=== PATIENT | male | born 1950 | race Caucasian/White ===

== ENCOUNTER 2017-06-17 13:23 | Emergency (ER) | payer OTHER, MEDICARE ==
[~2017-06-17] VITALS: Ht 177.8 cm; Wt 77.1 kg
[2017-06-17] MEDS ORDERED: ATORVASTATIN CA20 MG PO (13:33)
[2017-06-17] MEDS ORDERED: LEVOTHYROXINE125 MCG PO (13:33)
[2017-06-17] MEDS ORDERED: KEFLEX500 MG PO (15:47)
== END 2017-06-17 16:13 | disposition home or self-care (01) ==
LOC: ED 13:23
DX: S67.192A Crushing injury of right middle finger, initial encounter (principal); S61.312A Laceration without foreign body of right middle finger with damage to nail, initial encounter; S62.632A Displaced fracture of distal phalanx of right middle finger, initial encounter for closed fracture; E03.9 Hypothyroidism, unspecified; F17.200 Nicotine dependence, unspecified, uncomplicated; Z90.49 Acquired absence of other specified parts of digestive tract; Z79.899 Other long term (current) drug therapy; W20.8XXA Other cause of strike by thrown, projected or falling object, initial encounter
CPT/HCPCS: 11730; 73140; 90471; 90715; 99283

== ENCOUNTER 2018-08-05 05:35 | Day surgery (SDC) | payer MEDICARE, OTHER ==
[~2018-08-05] VITALS: Ht 177.8 cm; Wt 79.4 kg
[~2018-08-05 05:35] MED LIST: ATORVASTATIN CA20 MG PO; KEFLEX500 MG PO; LEVOTHYROXINE125 MCG PO
--- NOTE | 2018-08-05 09:10 | NUR ---
08/05/18 0910 Sheets,Roxana 0905 PT ARRIVED TO PACU ON 6L VIA MASK, RESP EVEN AND UNLABORED. PT REACTIVE TO TACTILE STIMULI, PT REORIENTED TO PACU.
--- NOTE | 2018-08-05 09:52 | NUR ---
PT ARRIVES TO DS RM 10 FROM PACU AWAKE AND ALERT. PT ABLE TO TOLERATE PO WITH NO NAUSEA. PT DENIES ANY PAIN. RESP EVEN AND UNLABORED ON RA, SATS ABOVE 94%. DC CRITERIA EXPLAINED TO PT. CALL LIGHT WITHIN REACH.
[2018-08-05] MEDS ORDERED: NORCO 10-325 T1 EACH PO (10:10)
--- NOTE | 2018-08-05 10:18 | NUR ---
[id number]: PT PROVIDED ICE CREAM AND COFFEE PER REQUEST. ICED WATER REFILLED. PT CONT TO REST IN HIGH FOWLERS, WATCHING TV WITH EVEN AND UNLABORED RESP SATS ABOVE 94% ON RA. PT FAMILY NOTIFIED VIA PHONE OF PT PROGRESS.
--- NOTE | 2018-08-05 10:28 | NUR ---
PT DENIES ANY NAUSEA OR PAIN. PT FAMILY, MONET ARRIVES AND IS AT BEDSIDE. PT STATES THE URGE TO VOID. PT SCD'S REMOVED AND IV SALINE LOCKED. PT SITS AT SIDE OF BED THEN SLOWLY STANDS WITH NO DIZZINESS. PT AMBULATES TO BATHROOM WITH STEADY GAIT. PT ABLE TO VOID QS WITH NO PROBLEMS.
--- NOTE | 2018-08-09 08:57 | OR ---
[facility] [address], [place] [address] Signed DATE OF OPERATION: 08/05/2018 SURGEON: Rico Diallo MD PREOPERATIVE DIAGNOSIS: Reducible right inguinal hernia. POSTOPERATIVE DIAGNOSIS: Reducible right direct inguinal hernia. PROCEDURE: Right Codie onlay mesh inguinal herniorrhaphy. ESTIMATED BLOOD LOSS: None. INDICATIONS: Kenia is a 67-year-old gentleman who has worked hard his whole life. He said in the last 7 to 9 months, he has noticed pain and swelling in the right groin. He said he had a left inguinal hernia repair back in the . He said it was much larger. He owns his own business, currently stays very active. He had been to his primary care provider. He was then asked to see me with respect to the above. On exam, his left inguinal canal was scarred in and unremarkable. The right inguinal canal showed a small to moderate sized, but reducible inguinal hernia. He is also a little tender with palpation. The spermatic cord and testicles were fine. I gave Anamika pamphlet on hernias in the office. We reviewed that very carefully. We did review the difference between the primary suture repair and a mesh repair. I explained to Kenia that the recurrent hernia rate with mesh is 1% or less. We also reviewed the expected intraop and postop course. He does understand the risks including, but not limited to bleeding, infection, scarring, change in contour of the skin, damage to the nerves, ischemic orchitis, recurrent hernias, and chronic pain. He has expressed understanding and would like to proceed. PROCEDURE NOTE: I met with Kenia in our preop area. We both agreed it was the right groin and we marked that appropriately. We did note that Kenia had shaved his hair the night before. He said back in the , that is what they had asked him to do. After this, he was taken in the operating room and placed in the supine position under general endotracheal tube anesthesia. He was given preoperative antibiotics along with subcutaneous heparin and SCDs were utilized. He was then prepped and draped in the usual sterile fashion. We Electronically Signed By: RICO DIALLO MD 08/09/18 0857 PATIENT NAME: KENIA DAILEY OPERATIVE REPORT DATE OF : 46 REPORT #: [id number] PHYSICIAN: RICO DIALLO MD PCP: ERICA FOSTER MD REPORT IS CONFIDENTIAL AND NOT TO BE RELEASED WITHOUT AUTHORIZATION [facility] [address], [place] [address] Signed measured out his right inguinal incision to match the incision in the left groin. It is a standard oblique incision. This was carried through the skin with the help of a #15 blade knife and down through the tissue bluntly and with the cautery. The external oblique fascia was opened along its length and developed medially and laterally. We had to sacrifice the ilioinguinal nerve as it was quite tiny and involved with the hernia itself. The cord structures were then elevated to the level of pubic tubercle. We noted that he had a small to moderate sized reducible direct inguinal hernia medial to the inferior epigastric artery and vein. It contained fat. He had just a tiny cord lipoma and we dissected that away from the cord structures and sutured ligated the lipoma at the neck with a 2-0 PDS suture. It was amputated and passed off the field. We then reduced the direct inguinal hernia and we imbricated the floor of inguinal canal starting next to the pubic tubercle all the way up to the deep ring with a running 2-0 PDS suture. This kept the direct inguinal hernia down and out of way for the hernia repair. After this, a piece of flat Prolene mesh was cut to fit his groin and a slit was made in the mesh to accommodate the cord structures at the level of the deep ring. The mesh was held in place medially and laterally with the help of running #1 Prolene suture. There was no undue tension of the mesh around the cord structures at the level of deep ring. Local anesthetic was then copiously injected in the wound. The wound was irrigated and suctioned out until clear. The external oblique fascia was closed over the repair with the help of a running 2-0 PDS suture. The Ulisses's fascia was approximated with a running 3-0 Monocryl suture. The dermis was reapproximated with interrupted 3-0 subcuticular Monocryl sutures. The skin edges were reapproximated with a running 6-0 fast absorbing plain gut suture. Dry gauze and tape were then applied. Kenia was awakened from his anesthesia, extubated in the OR, and taken to recovery room in stable condition. Rico Diallo MD ALB/MODL /[id number] cc: MD Erica López MD Electronically Signed By: RICO DIALLO MD 08/09/18 0857 PATIENT NAME: KENIA DAILEY OPERATIVE REPORT DATE OF : 46 REPORT #: [id number] PHYSICIAN: RICO DIALLO MD PCP: ERICA FOSTER MD REPORT IS CONFIDENTIAL AND NOT TO BE RELEASED WITHOUT AUTHORIZATION [address] [address] Signed Copies: RICO DIALLO MD, LOHITH VEERAPPA MD ~ Electronically Signed By: RICO DIALLO MD 08/09/18 0857 PATIENT NAME: KENIA DAILEY OPERATIVE REPORT DATE OF : 46 REPORT #: [id number] PHYSICIAN: RICO DIALLO MD PCP: ERICA FOSTER MD REPORT IS CONFIDENTIAL AND NOT TO BE RELEASED WITHOUT AUTHORIZATION
== END 2018-08-05 10:45 | disposition home or self-care (01) ==
LOC: DS 05:35
PROVIDERS: Colon & Rectal Surgery
PROC: 0YU50JZ Supplement Right Inguinal Region with Synthetic Substitute, Open Approach (ICD-10-PCS; principal; 2018-08-05 06:45)
DX: K40.90 Unilateral inguinal hernia, without obstruction or gangrene, not specified as recurrent (principal); D17.6 Benign lipomatous neoplasm of spermatic cord; E03.9 Hypothyroidism, unspecified; E78.5 Hyperlipidemia, unspecified; E83.42 Hypomagnesemia; I49.3 Ventricular premature depolarization; I10 Essential (primary) hypertension; F17.290 Nicotine dependence, other tobacco product, uncomplicated; Z98.890 Other specified postprocedural states; Z79.899 Other long term (current) drug therapy
CPT/HCPCS: 00830; C1781; J0690; J1644; J1885; J2250; J2405; J2704; J3010; J7120

== ENCOUNTER 2019-08-29 06:20 | Day surgery (SDC) | payer MEDICARE, OTHER ==
[~2019-08-29] VITALS: Ht 177.8 cm; Wt 79.4 kg
[~2019-08-29 06:20] MED LIST changes: +NORCO 10-325 T1 EACH PO
--- NOTE | 2019-08-29 08:04 | NUR ---
08/29/19 0804 Sheets,Roxana 0800 PT ARRIVED ASLEEP AND RESP EVEN AND UNLABORED. VSS. PT LAYING ON LEFT SIDE AND ABD SOFT.
--- NOTE | 2019-08-29 10:37 | OR ---
[facility] [address] [place], [place] [address] Signed DATE OF OPERATION: 08/29/2019 SURGEON: Rico Diallo MD PREOPERATIVE DIAGNOSIS: Adenomatous rectal polyp in 2012 at age 62. POSTOPERATIVE DIAGNOSES: 1. Moderate sigmoid diverticulosis. 2. 5 mm polyp at 35 cm. 3. 4 mm polyp in the base of cecum. 4. 3 mm polyps x3 at 15 cm. 5. Minimal internal hemorrhoids. PROCEDURE: Colonoscopy with hot biopsy. ESTIMATED BLOOD LOSS: None. INDICATIONS: Kenia is a 68-year-old gentleman, asked to see me for a followup colonoscopy. In September 2012, he underwent his colonoscopy at age 62. He had a small adenomatous polyp removed at 10 cm in the rectum. He returns for followup colonoscopy. He has no lower GI complaints. There is no family history of colon cancer or polyps. I met with Kenia in the office and I gave him a pamphlet on colonoscopy. He remembers the nature of that test along with the risks including, but not limited to gas, bloating, crampy abdominal pain, bleeding, perforation requiring surgery, and missed diagnosis. He also understands the need for IV conscious sedation. He had expressed understanding and wished to proceed. PROCEDURE NOTE: Kenia was taken into our endoscopy suite and placed in the left lateral decubitus position. Initially, he wanted to proceed without any medications whatsoever. After a short discussion, he decided it was better to go ahead with some IV sedation with Versed and fentanyl. We used a total of 5 mg of Versed and 100 mcg of fentanyl to cover the case. A digital rectal exam was performed and this was unremarkable. The adult colonoscope was introduced and advanced all around into the cecum under direct visualization of camera without difficulty. His prep was average. He had a couple of areas of liquid particulate stool matter. I could not quite suction out all of it, but Electronically Signed By: RICO DIALLO MD 08/29/19 [facility] PATIENT NAME: KENIA DAILEY OPERATIVE REPORT DATE OF : 46 REPORT #: [id number] PHYSICIAN: RICO DIALLO MD PCP: ERICA FOSTER MD REPORT IS CONFIDENTIAL AND NOT TO BE RELEASED WITHOUT AUTHORIZATION [facility] [address] [place], [place] [address] Signed most of it was obtainable. The above-mentioned polyps were easily removed with the help of a hot biopsy forceps. We did see diverticulosis. They are moderate in size, moderate in number, and scattered about through the sigmoid colon. The rectum had three tiny polyps at the top. I could see the polypectomy scar at 10 cm. Upon retroflexion of the scope, he has very minimal internal hemorrhoid tissue. After this, the gas was suctioned out and the colonoscope removed. Kenia tolerated the procedure quite well. RECOMMENDATIONS: Kenia might consider a repeat colonoscopy in 3 years, but no more than 5, considering his slightly below average bowel prep. Rico Diallo MD ALB/MODL /[id number] cc: MD Erica López MD Copies: RCIO DIALLO MD, LOHITH VEERAPPA MD ~ Electronically Signed By: RICO DIALLO MD 08/29/19 1037 PATIENT NAME: KENIA DAILEY PRIYA OPERATIVE REPORT DATE OF : 46 REPORT #: [id number] PHYSICIAN: RICO DIALLO MD PCP: ERICA FOSTER MD REPORT IS CONFIDENTIAL AND NOT TO BE RELEASED WITHOUT AUTHORIZATION
--- NOTE | 2019-08-30 15:32 | PATH ---
[facility] [address] [place], [place] [address] Signed SPECIMEN(S): A COLON POLYP AT 35 CM SPECIMEN(S): B CECAL POLYP SPECIMEN(S): C COLON POLYP AT 15 CM SPECIMEN SOURCE: A. COLON POLYP AT 35 CM B. CECAL POLYP C. COLON POLYP AT 15 CM CLINICAL HISTORY: Pre op: Hx Rectal Polyp. Post Op: Colorectal polyps, diverticulosis. MICROSCOPIC DESCRIPTION: Histologic sections of all submitted blocks are examined by light microscopy. These findings, together with the gross examination, support the pathologic diagnosis. FINAL PATHOLOGIC DIAGNOSIS: A. Colon, polyp at 35 cm, polypectomy: - Hyperplastic polyp. - Negative for dysplasia or malignancy. B. Colon, cecum, polyp, polypectomy: - Fragments of tubular adenoma. - Negative for high-grade dysplasia or malignancy. C. Colon, polyp at 15 cm, polypectomy: - Hyperplastic polyp. - Negative for dysplasia or malignancy. NAL:cml:C2NR GROSS DESCRIPTION: Three specimens are received in three containers, labeled "DA." A. The specimen, labeled "DA, colon polyp at 35 cm," per requisition, is received in formalin and consists of a single norton soft tissue fragment(s) that measure 0.3 cm in greatest dimension. The specimen is entirely submitted in cassette (A1). B. The specimen, labeled "DA, cecal polyp," per requisition, is received in formalin and consists of two norton soft tissue fragment(s) that measure 0.3 cm in greatest dimension. The specimen is entirely submitted in cassette (B1). C. The specimen, labeled "DA, colon polyp at 15 cm," per requisition, is received in formalin and consists of three norton soft tissue fragment(s) that measure 0.3 cm in greatest dimension. The specimen PATIENT NAME: KENIA DAILEY PATHOLOGY DATE OF : 46 REPORT #: [id number] PHYSICIAN: ZAYDA PATHOLOGY PCP: ERICA FOSTER MD REPORT IS CONFIDENTIAL AND NOT TO BE RELEASED WITHOUT AUTHORIZATION [facility] [address] [place], [place] [address] Signed is entirely submitted in cassette (C1). AT (under the direct supervision of a pathologist) The Gross Description was prepared using a voice recognition system. The report was reviewed for accuracy; however, sound-alike word errors, addition and/or deletions may occur. If there is any question about this report, please contact Client Services. PERFORMING LABORATORY: The technical component was performed by [facility] [address] (Associate Dean: Sumi Casey MD; CLIA# [id number]). Professional interpretation was performed by [facility], [address] [address] (CLIA# [id number]). Diagnostician: Abi Werner MD Pathologist Electronically Signed 08/30/2019 Copies: ~ PATIENT NAME: KENIA DAILEY PATHOLOGY DATE OF : 46 REPORT #: [id number] PHYSICIAN: ZAYDA DURAND PCP: ERICA FOSTER MD REPORT IS CONFIDENTIAL AND NOT TO BE RELEASED WITHOUT AUTHORIZATION
== END 2019-08-29 08:45 | disposition home or self-care (01) ==
LOC: DS 06:20 → OPS 06:20 → DS 06:45 → OPS 06:45
PROVIDERS: Colon & Rectal Surgery
PROC: 0DBE8ZZ Excision of Large Intestine, Via Natural or Artificial Opening Endoscopic (ICD-10-PCS; 2019-08-29)
PROC: 0DBP8ZZ Excision of Rectum, Via Natural or Artificial Opening Endoscopic (ICD-10-PCS; 2019-08-29)
PROC: 0DBH8ZZ Excision of Cecum, Via Natural or Artificial Opening Endoscopic (ICD-10-PCS; principal; 2019-08-29 06:45)
DX: Z12.11 Encounter for screening for malignant neoplasm of colon (principal); D12.0 Benign neoplasm of cecum; K63.5 Polyp of colon; K62.1 Rectal polyp; K57.30 Diverticulosis of large intestine without perforation or abscess without bleeding; K64.8 Other hemorrhoids; E78.5 Hyperlipidemia, unspecified; E03.9 Hypothyroidism, unspecified; E83.42 Hypomagnesemia; F17.210 Nicotine dependence, cigarettes, uncomplicated; Z86.010 Personal history of colon polyps; Z79.899 Other long term (current) drug therapy; Z98.890 Other specified postprocedural states
CPT/HCPCS: 99153; G0500; J2250; J3010; J7121